=== PATIENT | male | born 1940 | race Caucasian/White ===

== ENCOUNTER → 2017-12-29 11:20 | Outpatient (REF) | payer MEDICARE, SELFPAY | LOC: LAB 11:20 | PROVIDERS: Visit Provider Emergency Medicine | DX: R41.9 Unspecified symptoms and signs involving cognitive functions and awareness (principal) ==

== ENCOUNTER → 2017-12-30 11:24 | Outpatient (REF) | payer MEDICARE, SELFPAY ==
[2017-12-30 11:32] LABS: Microscopic, Urine URINE MICROSCOPIC (MICROSCOPIC)
[2017-12-30 11:37] LABS: Appearance,Urine CLEAR (Clear); Bilirubin,Urine Negative (Negative); Blood, Urine Negative (Negative); Color,Urine YELLOW (Yellow); Glucose,Urine (UA) Negative (Negative); Ketones,Urine Negative (Negative); Leukocyte Esterase,Urine Negative (Negative); Nitrate,Urine Negative (Negative); Protein,Urine Negative (Negative); Urobilinogen,Urine 0.2 EU/dl (0.2)
[2017-12-30 11:47] LABS: Bacteria,Urine Trace /lpf; Squamous Epithelial Cell,Urine Occasional #/hpf (0-5); WBC,Urine Occasional #/hpf (0-3)
== END ==
LOC: LAB 11:24
PROVIDERS: Visit Provider Emergency Medicine
DX: R41.82 Altered mental status, unspecified (principal)
CPT/HCPCS: 81001

== ENCOUNTER → 2018-01-07 14:33 | Outpatient (CLI) | payer MEDICARE, MEDICAID, SELFPAY ==
--- NOTE | 2018-01-07 14:35 | CA_ITS ---
PROCEDURE: 2-D M-mode and color Doppler study INDICATIONS FOR THE TEST: Chest pain COPD Heart Murmur Tobacco SmokingEX Palpitations Fatigue Syncope Edema HypertensionXDiabetes Mellitus Rheumatic Fever SOBXDOEXObesity Hyperlipidemia Family History HD Additional History CHRONIC CHF,CAD,PPM PATIENT INFORMATION HEIGHT: 75 WEIGHT:172 GENDER: Male B/P:120/65 2-D/M-MODE INTERPRETATION: 2-D MEASUREMENTS OBSERVED VALUES IN CMS Right Ventricular Dimension (RVDd) 1.6 Interventricular Septum (Thickness)(IVsd) 1.0 Left Ventricular Internal Dimensions(LVIDd) 5.1 Left Ventricular Posterior Wall (Thickness)(LVPWd) 1.2 Aortic Root 2.9 Aortic Cusp Separation 2.1 Left Atrial Dimensions (LAD) 2.9 2D 1. Left atrium is mildly enlarged, left ventricle is normal size, mild concentric left ventricular hypertrophy, visually estimated ejection fraction 45-50%, there is abnormal septal motion. 2. The right atrium and right ventricle are normal size and contractility, there is a pacemaker lead seen right atrium and right ventricle. 3. The aortic valve is minimally thickened and fibrosed. 4. The mitral valve has mitral calcification. 5. The tricuspid valve is grossly normal. 6. The pulmonic valve is poorly visualized. DOPPLER INTERROGATION: Doppler interrogation of the aortic, mitral and tricuspid valvular presence of mild mitral and tricuspid regurgitation, tricuspid regurgitation jet velocity is inadequate for calculation of the right ventricular systolic pressure, diastolic parameters are within normal range. CONCLUSION: 1. Mildly enlarged left atrium, normal left ventricular size, mild concentric left ventricular hypertrophy, visually estimated ejection fraction approximately 45-50%, there is abnormal septal motion, diastolic parameters are within normal range. 2. Mild mitral and tricuspid regurgitation 3. No significant pericardial effusion noted.
== END ==
PROVIDERS: PCP Emergency Medicine; Visit Provider Internal Medicine
DX: I50.32 Chronic diastolic (congestive) heart failure (principal)
CPT/HCPCS: 93306

== ENCOUNTER → 2018-01-14 08:56 | Outpatient (CLI) | payer MEDICARE, SELFPAY ==
--- NOTE | 2018-01-14 08:58 | CT_ITS ---
CT cervical spine wo con Ordering Physician: Tosin Cornejo MD Patient Age: 77 years: Male HISTORY: ITS.REASON: evaluation for myelopathy CT cervical spine wo con Neck pain. Weakness . PROCEDURE: Thin section helical spiral CT scanning performed of the cervical spine beginning at the base of the skull and continuing to the upper T-spine. Thickened Multiplanar reconstructions performed on CT workstation no contrast utilized Technique: All CT scans at this facility use one or more dose reduction techniques, viz.: automated exposure control, ma/kV adjustment per patient size (including targeted exams where dose is matched to indication, i.e. head) or iterative reconstruction technique. COMPARISON: Limited lateral views from a previous cervical myelogram June 23, 2009. *Now found CT cervical post myelogram performed after June 23, 2009.. I would note it is unlabeled in PACS and performed with a CT chest/thoracic post myelogram in 2010 spine FINDINGS:---- No fracture nor subluxation is evident.. Progression of cervical spondylosis and degenerative changes most evident C7/T1 Normal prevertebral soft tissues. Normal alignment. Generous anterior marginal osteophytes throughout the C-spine. Similar to 2010. C2/3 disc intact. Uncovertebral joint hypertrophy to the right only slightly more pronounced than on 2010. Bilateral facet hypertrophy most exuberant to the right.. Features combine to yield a moderate right foraminal and recess encroachment C3/4. Disc intact.Bilateral facet hypertrophy/arthropathy most exuberant on the left.. With mild encroachment left foramen C4/5. There is 2.5 mm minimal Degenerative anterior listhesis C4 on C5. This was present in 2010 and appears similar if not perhaps incrementally more pronounced. This listhesis appears be due to the prominent degenerative facet changes bilateral, as well as mild disc space narrowing. Bilateral foraminal encroachment. C4/5. Slight disc space narrowing to the right. Mild hard disc to the right slightly indents thecal sac to the right C6/7. Marked degenerative disc space narrowing and cervical spondylosis. The disc/osteophyte features indenting anterior aspect of thecal sac.. Moderate bilateral foraminal encroachment. C7/T1. When compared to prior 2010 CT myelogram. There has been been marked interval disc space narrowing c7/T1, with sclerotic reactive endplate changes. Slight rightward shift of C7 on T1 also noted with subtle rotation which yields minimal anterolisthesis to the left.- best seen sagittal image 33 today These changes do yield progressive encroachment upon the left foramen more so than right. Additional hypertrophic facet changes bilateral. There are prominent facet arthropathy and hypertrophy throughout the C-spine bilaterally which is also shows slight progression.. Most pronounced facet arthropathy right at C2/3 and uppermost C-spine.. On the left facet arthropathy throughout but most most pronounced at C3-C5 Progression of dense atherosclerotic calcification at the carotid bifurcations bilaterally. I suspect is up to 50-60% % stenosis at the right carotid bifurcation & entry right ICA. Recommend correlation with duplex Doppler study. Dense area of calcification at the ligamentum nuchae again noted and similar to old studies posterior/overlying C4-C6 spinous processes. Extensive dental caries partially imaged. Instilling noted as well. Warrants dental follow-up IMPRESSION 1. Cervical spondylosis with Multilevel degenerative disc changes as detailed in text. -With interval progression multiple levels. Most pronounced change at C7/T1 since comparison 2009 CT cervical myelogram . C4-C5 Degenerative anterolisthesis, again noted & appears similar if not incrementally more pronounc
--- NOTE | 2018-01-14 08:58 | CT_ITS ---
CT head/brain wo con HISTORY: ITS.REASON: evaluation for myelopathy evaluation for myelopathy. ORDERING PHYSICIAN: Tosin Cornejo MD PATIENT AGE: 77 years COMPARISON: 12/27/2015 & February 2014 CT head TECHNIQUE: Axial images obtained without contrast. Brain and bone windows reviewed. All CT scans at the facility use one or more dose reduction, viz: automated exposure control, ma/kV adjustment per patient size (including targeted exams where dose is matched to indication, i.e. head), or iterative reconstruction technique. FINDINGS: No acute intracranial findings. No hemorrhage. No mass lesion or mass effect. 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 Small old infarct at the left posterior parietal region is well. Again these features are stable and unchanged since dating back to 2013 & 2015. Posterior fossa unchanged. Perhaps minor cerebellar atrophy. .. Skull intact. Mastoid air cells well-developed and clear. No mastoid effusion.Middle ear clear. IACs unremarkable Paranasal sinuses. No significant findings. Well-developed and clear.No sinus air-fluid levels.. IMPRESSION: No acute intracranial findings. No significant change since 2013 CT head. Prominent Chronic small vessel deep white matter ischemic gliotic changes cerebral hemisphere again noted. 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 (Right frontal infarct, right posterior parietal, infarct.Smaller posterior left parietal infarct) with No change since 2013
== END ==
PROVIDERS: PCP Emergency Medicine; Visit Provider Specialist
DX: F10.27 Alcohol dependence with alcohol-induced persisting dementia (principal); G93.40 Encephalopathy, unspecified; R26.0 Ataxic gait
CPT/HCPCS: 70450; 72125

== ENCOUNTER → 2018-01-14 09:21 | Outpatient (POV) | payer MEDICARE, MEDICAID, SELFPAY | PROVIDERS: Visit Provider Specialist | DX: F10.27 Alcohol dependence with alcohol-induced persisting dementia (principal); G93.40 Encephalopathy, unspecified; R26.0 Ataxic gait | CPT/HCPCS: 70450; 72125; 95816 ==